=== PATIENT | male | born 1945 | race Caucasian/White ===

== ENCOUNTER 2017-09-14 18:26 | Emergency (ER) | payer MEDICARE ==
[~2017-09-14] VITALS: Ht 170.2 cm; Wt 90.0 kg
[2017-09-14 20:24] VITALS: BP 157/102
== END 2017-09-14 20:32 | disposition home or self-care (01) ==
LOC: ED 19:50
DX: F12.122 Cannabis abuse with intoxication with perceptual disturbance (principal); I10 Essential (primary) hypertension; E11.9 Type 2 diabetes mellitus without complications
CPT/HCPCS: 93005; 99283

== ENCOUNTER 2017-10-03 00:07 | Inpatient (IN) | payer MEDICARE, MEDICAID ==
[~2017-10-03] VITALS: Ht 175.3 cm; Wt 69.1 kg
[2017-10-03] MEDS ORDERED: SODIUM CHLORIDE 0.9% 1,000ML IVBOLUS ONE (00:30)
[2017-10-03 00:44] LABS: BASOPHILS # (AUTO) 0.02 x10^3/uL (0-0.1); BASOPHILS % (AUTO) 0 % (0-1); EOSINOPHILS % (AUTO) 0 % (1-7); LYMPHOCYTES # (AUTO) 1.01 x10^3/uL (1-3.4); LYMPHOCYTES % (AUTO) 8 % (22-44); MD NO; MEAN CORPUSCULAR HGB CONC 31.9 g/dL (33.2-36.2); MEAN CORPUSCULAR VOLUME 65.8 fL (81-97); MEAN PLATELET VOLUME 7.7 fL (7.4-10.4); MONOCYTES # (AUTO) 0.95 x10^3/uL (0.2-0.8); MONOCYTES % (AUTO) 8 % (2-9); NEUTROPHILS # (AUTO) 10.59 x10^3/uL (1.8-6.8); NEUTROPHILS % (AUTO) 84 % (42-75); PLATELET COUNT 297 x10^3/uL (130-400); RED BLOOD COUNT 5.75 x10^6/uL (4.38-5.82); RED CELL DISTRIBUTION WIDTH 14.8 % (9.4-14.8)
[2017-10-03 00:55] LABS: ALANINE AMINOTRANSFERASE 18 U/L (12-78); ALBUMIN 3.1 g/dL (3.4-5.0); ANION GAP 8 mmol/L (5-15); CALCIUM 7.9 mg/dL (8.5-10.1); CHLORIDE 103 mmol/L (98-107); CREATININE 1.32 mg/dL (0.7-1.3); SALICYLATE LEVEL < 1.7 mg/dL (2.8-20.0)
[2017-10-03 01:00] LABS: ALKALINE PHOSPHATASE 79 U/L (45-117); BILIRUBIN,TOTAL 0.7 mg/dL (0.2-1.0); TROPONIN I < 0.015 ng/mL (0.000-0.045)
[2017-10-03 01:03] LABS: ACETAMINOPHEN < 2 mcg/mL (10-30)
[2017-10-03] MEDS ORDERED: CEFTRIAXONE PMX 1GM/50ML 50 ML IVPB ONE (02:00)
[2017-10-03] MEDS ORDERED: AZITHROMYCIN 500 MG in SODIUM CHLORIDE 0.9% 250 ML IVPB ONE (02:00)
[2017-10-03] MEDS ORDERED: CEFTRIAXONE PMX 1GM/50ML 50 ML ONE (02:02)
[2017-10-03 03:40] LABS: MICROSCOPIC AUTO
[2017-10-03 03:41] LABS: AMPHETAMINE SCREEN, URINE Negative (Negative); BARBITURATE SCREEN, URINE Negative (Negative); BENZODIAZEPINE SCREEN, URINE Negative (Negative); CANNABINOID SCREEN, URINE Positive (Negative); COCAINE SCREEN, URINE Negative (Negative); METHADONE SCREEN, URINE Negative (Negative); OPIATE SCREEN, URINE Negative (Negative)
[2017-10-03 04:13] LABS: CULTURE INDICATED? YES
[2017-10-03] MEDS ORDERED: ACETAMINOPHEN 325 MG TABLET PO PRN (05:00)
[2017-10-03] MEDS ORDERED: ONDANSETRON 2MG/ML, 2ML IVPush PRN (05:00)
[2017-10-03] MEDS ORDERED: GLUCAGON 1 MG IM PRN (05:00)
[2017-10-03] MEDS ORDERED: ENOXAPARIN 40 MG/0.4 ML SQ SCH (05:00)
[2017-10-03] MEDS ORDERED: DEXTROSE 4 GM TAB.CHEW PO PRN (05:00)
[2017-10-03] MEDS ORDERED: hydrALAzine 20 MG/ML, 1ML IVPush PRN (05:00)
[2017-10-03] MEDS ORDERED: DEXTROSE 50%, 50ML SYRINGE IVPush PRN (05:00)
[2017-10-03 05:09] LABS: TOTAL IRON BINDING CAPACITY 248 mcg/dL (250-450)
[2017-10-03 05:10] LABS: % IRON SATURATION 8 % (20-55); IRON LEVEL 19 mcg/dL (65-175)
[2017-10-03] MEDS ORDERED: ENOXAPARIN 40 MG/0.4 ML ONE (05:12)
[2017-10-03] MEDS: SODIUM CHLORIDE 0.9% 1,000 ML IV SCH ×2 (05:33→17:40)
[2017-10-03] MEDS: SODIUM CHLORIDE FLUSH 10ML SYR IVF SCH ×2 (09:00→21:00)
[2017-10-03 12:33] VITALS: BP 120/68
[2017-10-03 12:37] VITALS: BP 120/88
[2017-10-03 16:48] LABS: CLOSTRIDIUM DIFFICILE ANTIGEN NEGATIVE; CLOSTRIDIUM DIFFICILE TOXIN NEGATIVE (Negative)
[2017-10-03 19:44] VITALS: BP 135/83
[2017-10-04 02:16] VITALS: BP 150/89
[2017-10-04 05:17] LABS: BASOPHILS # (AUTO) 0.08 x10^3/uL (0-0.1); BASOPHILS % (AUTO) 1 % (0-1); EOSINOPHILS % (AUTO) 1 % (1-7); LYMPHOCYTES # (AUTO) 1.92 x10^3/uL (1-3.4); LYMPHOCYTES % (AUTO) 19 % (22-44); MD NO; MEAN CORPUSCULAR HEMOGLOBIN 20.9 pg (27.5-34.5); MEAN CORPUSCULAR HGB CONC 31.4 g/dL (33.2-36.2); MEAN CORPUSCULAR VOLUME 66.4 fL (81-97); MEAN PLATELET VOLUME 7.6 fL (7.4-10.4); MONOCYTES # (AUTO) 0.78 x10^3/uL (0.2-0.8); MONOCYTES % (AUTO) 8 % (2-9); NEUTROPHILS # (AUTO) 7.11 x10^3/uL (1.8-6.8); NEUTROPHILS % (AUTO) 71 % (42-75); PLATELET COUNT 233 x10^3/uL (130-400); RED BLOOD COUNT 5.05 x10^6/uL (4.38-5.82)
[2017-10-04 05:25] LABS: CHLORIDE 106 mmol/L (98-107)
[2017-10-04 05:34] LABS: ALANINE AMINOTRANSFERASE 21 U/L (12-78); ALBUMIN 2.4 g/dL (3.4-5.0); ALKALINE PHOSPHATASE 68 U/L (45-117); ANION GAP 8 mmol/L (5-15); BILIRUBIN,TOTAL 0.6 mg/dL (0.2-1.0); CALCIUM 7.5 mg/dL (8.5-10.1); CREATININE 0.88 mg/dL (0.7-1.3)
[2017-10-04 05:53] LABS: HEMOGLOBIN A1C 7.4 % (4.2-6.3)
[2017-10-04] MEDS: SODIUM CHLORIDE 0.9% 1,000 ML IV SCH (07:16)
[2017-10-04 07:31] VITALS: BP 148/88
[2017-10-04] MEDS: IRON SUCROSE COMPLEX 100MG/5ML IV SCH (09:34)
[2017-10-04] MEDS: SODIUM CHLORIDE FLUSH 10ML SYR IVF SCH ×2 (09:34→21:02)
[2017-10-04 13:25] VITALS: BP 138/89
[2017-10-04 21:52] VITALS: BP 135/72
[2017-10-05 01:16] VITALS: BP 128/72
[2017-10-05 07:00] VITALS: BP 139/88
[2017-10-05] MEDS: SODIUM CHLORIDE FLUSH 10ML SYR IVF SCH ×2 (09:00→20:43)
[2017-10-05] MEDS: IRON SUCROSE COMPLEX 100MG/5ML IV SCH (11:00)
[2017-10-05] MEDS: CEFTRIAXONE PMX 1GM/50ML 50 ML IV SCH (16:03)
[2017-10-05 16:24] VITALS: BP 146/82
[2017-10-05 20:24] VITALS: BP 139/72
[2017-10-06 01:17] VITALS: BP 158/88
[2017-10-06 07:30] VITALS: BP 136/89
[2017-10-06] MEDS: SODIUM CHLORIDE FLUSH 10ML SYR IVF SCH ×2 (09:57→20:54)
[2017-10-06] MEDS: IRON SUCROSE COMPLEX 100MG/5ML IV SCH (09:57)
[2017-10-06 15:09] VITALS: BP 130/89
[2017-10-06] MEDS: CEFTRIAXONE PMX 1GM/50ML 50 ML IV SCH (15:23)
[2017-10-06 19:36] VITALS: BP 166/100
[2017-10-06 20:55] VITALS: BP 144/93
[2017-10-07 01:22] VITALS: BP 147/87
[2017-10-07 07:10] VITALS: BP 124/74
[2017-10-07] MEDS: SODIUM CHLORIDE FLUSH 10ML SYR IVF SCH ×2 (09:00→20:07)
[2017-10-07] MEDS: IRON SUCROSE COMPLEX 100MG/5ML IV SCH (11:02)
[2017-10-07 13:00] VITALS: BP 126/85
[2017-10-07] MEDS: CEFTRIAXONE PMX 1GM/50ML 50 ML IV SCH (15:25)
[2017-10-07 19:44] VITALS: BP 156/91
[2017-10-08 01:05] VITALS: BP 146/89
[2017-10-08 07:40] VITALS: BP 154/92
[2017-10-08] MEDS: IRON SUCROSE COMPLEX 100MG/5ML IV SCH (08:41)
[2017-10-08] MEDS: SODIUM CHLORIDE FLUSH 10ML SYR IVF SCH ×2 (08:42→21:43)
[2017-10-08 13:30] VITALS: BP 126/81
[2017-10-08 18:49] VITALS: BP 142/89
[2017-10-09 03:32] VITALS: BP 152/97
[2017-10-09 07:12] VITALS: BP 131/83
[2017-10-09] MEDS: SODIUM CHLORIDE FLUSH 10ML SYR IVF SCH ×2 (09:00→20:04)
[2017-10-09] MEDS: IRON SUCROSE COMPLEX 100MG/5ML IV SCH (09:00)
[2017-10-09 14:08] VITALS: BP 146/82
[2017-10-09 19:47] VITALS: BP 148/84
[2017-10-10 01:38] VITALS: BP 117/70
[2017-10-10 07:35] VITALS: BP 143/90
[2017-10-10] MEDS: IRON SUCROSE COMPLEX 100MG/5ML IV SCH (10:12)
[2017-10-10] MEDS: SODIUM CHLORIDE FLUSH 10ML SYR IVF SCH ×2 (10:13→22:07)
[2017-10-10 14:00] VITALS: BP 152/82
[2017-10-10 19:02] VITALS: BP 144/93
[2017-10-11 01:37] VITALS: BP 131/86
[2017-10-11 07:01] VITALS: BP 130/83
[2017-10-11] MEDS: SODIUM CHLORIDE FLUSH 10ML SYR IVF SCH ×2 (12:08→20:53)
[2017-10-11] MEDS: IRON SUCROSE COMPLEX 100MG/5ML IV SCH (12:08)
[2017-10-11 13:55] VITALS: BP 134/80
[2017-10-11 19:54] VITALS: BP 133/82
[2017-10-12 01:03] VITALS: BP 103/73
[2017-10-12 09:40] VITALS: BP 134/83
[2017-10-12] MEDS: SODIUM CHLORIDE FLUSH 10ML SYR IVF SCH ×2 (10:48→21:00)
[2017-10-12] MEDS: IRON SUCROSE COMPLEX 100MG/5ML IV SCH (10:48)
[2017-10-12 14:07] VITALS: BP 118/80
[2017-10-12 19:18] VITALS: BP 131/91
[2017-10-13 01:07] VITALS: BP 131/92
[2017-10-13 08:25] VITALS: BP 115/80
[2017-10-13] MEDS: SODIUM CHLORIDE FLUSH 10ML SYR IVF SCH ×2 (09:00→20:03)
[2017-10-13] MEDS: IRON SUCROSE COMPLEX 100MG/5ML IV SCH (09:00)
[2017-10-13 13:15] VITALS: BP 108/79
[2017-10-13 19:23] VITALS: BP 124/85
[2017-10-14 01:36] VITALS: BP 131/81
[2017-10-14 07:42] VITALS: BP 128/81
[2017-10-14] MEDS: SODIUM CHLORIDE FLUSH 10ML SYR IVF SCH ×2 (09:13→20:24)
[2017-10-14 13:00] VITALS: BP 130/87
[2017-10-14 19:37] VITALS: BP 131/89
[2017-10-15 01:09] VITALS: BP 111/76
[2017-10-15 05:23] LABS: BASOPHILS # (AUTO) 0.06 x10^3/uL (0-0.1); BASOPHILS % (AUTO) 1 % (0-1); EOSINOPHILS # (AUTO) 0.24 x10^3/uL (0-0.4); EOSINOPHILS % (AUTO) 2 % (1-7); LYMPHOCYTES # (AUTO) 2.63 x10^3/uL (1-3.4); LYMPHOCYTES % (AUTO) 21 % (22-44); MD NO; MEAN CORPUSCULAR HEMOGLOBIN 20.6 pg (27.5-34.5); MEAN CORPUSCULAR HGB CONC 30.8 g/dL (33.2-36.2); MEAN CORPUSCULAR VOLUME 66.8 fL (81-97); MEAN PLATELET VOLUME 7.8 fL (7.4-10.4); MONOCYTES # (AUTO) 0.84 x10^3/uL (0.2-0.8); MONOCYTES % (AUTO) 7 % (2-9); NEUTROPHILS # (AUTO) 8.94 x10^3/uL (1.8-6.8); NEUTROPHILS % (AUTO) 70 % (42-75); PLATELET COUNT 387 x10^3/uL (130-400); RED BLOOD COUNT 5.84 x10^6/uL (4.38-5.82)
[2017-10-15 05:35] LABS: CHLORIDE 103 mmol/L (98-107)
[2017-10-15 05:42] LABS: ANION GAP 8 mmol/L (5-15); CALCIUM 8.3 mg/dL (8.5-10.1); CREATININE 1.13 mg/dL (0.7-1.3)
[2017-10-15 07:43] VITALS: BP 131/87
[2017-10-15] MEDS: SODIUM CHLORIDE FLUSH 10ML SYR IVF SCH ×2 (08:45→22:09)
[2017-10-15 12:44] VITALS: BP 116/75
[2017-10-15 19:32] VITALS: BP 122/78
[2017-10-16 02:04] VITALS: BP 122/78
[2017-10-16 07:57] VITALS: BP 122/79
[2017-10-16] MEDS: SODIUM CHLORIDE FLUSH 10ML SYR IVF SCH ×2 (18:41→22:35)
[2017-10-16 19:19] VITALS: BP 170/76
[2017-10-16 20:20] VITALS: BP 121/82
[2017-10-17 02:54] VITALS: BP 111/78
[2017-10-17 06:41] VITALS: BP 124/86
[2017-10-17] MEDS: SODIUM CHLORIDE FLUSH 10ML SYR IVF SCH (09:52)
[2017-10-17 12:16] VITALS: BP 124/70
[2017-10-17 19:40] VITALS: BP 99/64
[2017-10-18 00:58] VITALS: BP 120/87
[2017-10-18 07:03] VITALS: BP 130/85
[2017-10-18 14:57] VITALS: BP 142/76
[2017-10-18 15:06] VITALS: BP 102/71
[2017-10-18 19:50] VITALS: BP 130/89
[2017-10-19 01:19] VITALS: BP 119/84
[2017-10-19 05:15] LABS: BASOPHILS # (AUTO) 0.07 x10^3/uL (0-0.1); BASOPHILS % (AUTO) 1 % (0-1); EOSINOPHILS # (AUTO) 0.24 x10^3/uL (0-0.4); EOSINOPHILS % (AUTO) 2 % (1-7); LYMPHOCYTES # (AUTO) 3.07 x10^3/uL (1-3.4); LYMPHOCYTES % (AUTO) 30 % (22-44); MD NO; MEAN CORPUSCULAR HEMOGLOBIN 20.8 pg (27.5-34.5); MEAN CORPUSCULAR HGB CONC 31.4 g/dL (33.2-36.2); MEAN CORPUSCULAR VOLUME 66.2 fL (81-97); MEAN PLATELET VOLUME 7.9 fL (7.4-10.4); MONOCYTES # (AUTO) 0.81 x10^3/uL (0.2-0.8); MONOCYTES % (AUTO) 8 % (2-9); NEUTROPHILS # (AUTO) 6.15 x10^3/uL (1.8-6.8); NEUTROPHILS % (AUTO) 60 % (42-75); PLATELET COUNT 461 x10^3/uL (130-400); RED BLOOD COUNT 5.94 x10^6/uL (4.38-5.82); RED CELL DISTRIBUTION WIDTH 14.9 % (9.4-14.8)
[2017-10-19 05:21] LABS: ANION GAP 6 mmol/L (5-15); CHLORIDE 102 mmol/L (98-107); CREATININE 1.35 mg/dL (0.7-1.3)
[2017-10-19 08:06] VITALS: BP 95/65
[2017-10-19 16:11] VITALS: BP 105/72
[2017-10-19 19:56] VITALS: BP 120/81
[2017-10-20 02:44] VITALS: BP 111/58
[2017-10-20 07:24] VITALS: BP 107/72
[2017-10-20] MEDS ORDERED: DIPHENHYDRAMINE 25 MG CAPSULE PO PRN (09:30)
[2017-10-20 13:42] VITALS: BP 116/88
[2017-10-20 19:22] VITALS: BP 114/77
[2017-10-21 01:55] VITALS: BP 110/77
[2017-10-21 07:55] VITALS: BP 131/86
[2017-10-21 12:19] VITALS: BP 136/87
[2017-10-21 19:32] VITALS: BP 132/89
[2017-10-22 03:00] VITALS: BP 133/81
[2017-10-22 07:50] VITALS: BP 114/69
[2017-10-22 12:40] VITALS: BP 132/87
[2017-10-22 12:45] VITALS: BP 94/66
[2017-10-22 19:31] VITALS: BP 136/72
[2017-10-23 02:03] VITALS: BP 122/86
[2017-10-23 07:55] VITALS: BP 151/84
[2017-10-23 14:50] VITALS: BP 131/94
[2017-10-23 19:31] VITALS: BP 104/74
[2017-10-24 03:40] VITALS: BP 117/84
[2017-10-24 07:30] VITALS: BP 130/86
[2017-10-24] MEDS ORDERED: PNEUMOC 13-VALENT VACC, 0.5 ML IM-VACC ONE (11:00)
[2017-10-24] MEDS ORDERED: PNEUMOCOCCAL 23 VACCINE IM-VACC ONE (11:00)
[2017-10-24] MEDS ORDERED: FLU VACC QS2017-18 (36MOS+) UP/PF 0.5 ML IM-VACC ONE (11:00)
== END 2017-10-24 13:30 | disposition home or self-care (01) | DRG 56 ==
LOC: ED 00:13 → EDIP 01:50 → 3WST 12:06 → 3NE 18:00 → DCLOUNGE 10-24 13:15
PROVIDERS: ADMIT Hospitalist; ATTEND Internal Medicine
DX: G30.1 Alzheimer's disease with late onset (principal); E43 Unspecified severe protein-calorie malnutrition; J15.9 Unspecified bacterial pneumonia; E11.649 Type 2 diabetes mellitus with hypoglycemia without coma; E11.9 Type 2 diabetes mellitus without complications; N39.0 Urinary tract infection, site not specified; F02.81 Dementia in other diseases classified elsewhere, unspecified severity, with behavioral disturbance; D50.9 Iron deficiency anemia, unspecified; E86.0 Dehydration; I10 Essential (primary) hypertension; G89.29 Other chronic pain; F01.50 Vascular dementia, unspecified severity, without behavioral disturbance, psychotic disturbance, mood disturbance, and anxiety; Z23 Encounter for immunization; F12.90 Cannabis use, unspecified, uncomplicated; R62.7 Adult failure to thrive; Z59.0 Homelessness; Z86.73 Personal history of transient ischemic attack (TIA), and cerebral infarction without residual deficits; Z68.22 Body mass index [BMI] 22.0-22.9, adult
CPT/HCPCS: 36415; 70450; 71010; 80048; 80053; 80307; 80329; 81001; 82140; 82962; 83036; 83540; 83550; 83735; 83880; 84100; 84484; 85025; 87040; 87086; 87147; 87324; 90686; 90732; 93005; 93306; 96361; 96365; 96367; 96372; 96375; 96376; J0456; J0696; J1650; J1756; 92523-GN; G0479; G0480; J7030; J7050